=== PATIENT | female | born 1995 | race African-American/Black ===

== ENCOUNTER 2018-04-11 20:50 | Emergency (ER) | payer SELFPAY ==
[2018-04-11 20:56] VITALS: BP 141/85
[2018-04-11] MEDS ORDERED: MEDROL4 M2 PO (21:43)
[2018-04-11] MEDS ORDERED: NAPROSYN500 M1 PO (21:43)
[2018-04-11] MEDS ORDERED: CYCLOBENZAPRINE10 M1 PO (21:43)
--- NOTE | 2018-04-11 21:44 | ED UPPER/LOWER EXTREMITY COMPL ---
History of Present Illness General Chief Complaint: General Adult Stated Complaint: NECK TO L SIDE OF ARM PAIN Source: patient Exam Limitations: no limitations Vital Signs & Intake/Output Vital Signs & Intake/Output Vital Signs Date Time Temp Pulse Resp B/P B/P Pulse O2 O2 Flow FiO2 Mean Ox Delivery Rate 04/11 2148 Room Air 04/11 2056 98.2 83 16 141/85 96 Room Air Allergies Coded Allergies: No Known Allergies (04/11/18) Reconcile Medications Cyclobenzaprine HCl 10 MG TABLET 1 TAB PO TID SPASMS Methylprednisolone. (Medrol) 4 MG TAB.DS.PK 1 DP PO AD PAIN 6 on day 1 then reduce by one tablet daily until gone Naproxen (Naprosyn) 500 MG TABLET 1 TAB PO BID PAIN Triage Note: PT TO ED WITH C/O INTERMITTENT THROBBING PAIN ON LEFT SIDE OF NECK RADIATING DOWN LEFT ARM SINCE YESTERDAY. DENIES INJURY OR STRAIN. DENIES CP, SOB. Triage Nurses Notes Reviewed? yes Onset: Abrupt Duration: day(s):, constant Timing: recent history Severity: moderate, severe Pain/Injury Location: Left: Shoulder. No Modifying Factors: none : No Patient currently breastfeeds: No HPI: 22-year-old female comes into the emergency room for further evaluation of neck pain. Symptoms been going on for days. Pain is worse with certain movements at times. She gets a burning sensation in her left shoulder that radiates down her left arm to her hand. No chest pain or shortness of breath. Nothing seems to make the symptoms better or worse. She comes in for further evaluation. Denies any known trauma.. (Julian Reina) Past History Travel History Traveled to [place] past 21 day No Medical History Any Pertinent Medical History? none Surgical History Surgical History: non-contributory Psychosocial History What is your primary language Iranian Tobacco Use: Never used Family History Hx Contributory? No (Julian Reina) Review of Systems Review of Systems Constitutional: Reports: no symptoms. EENTM: Reports: no symptoms. Respiratory: Reports: no symptoms. Cardiovascular: Reports: no symptoms. Gastrointestinal/Abdominal: Reports: no symptoms. Genitourinary: Reports: no symptoms. Musculoskeletal: Reports: see HPI. Skin: Reports: no symptoms. Neurological/Psychological: Reports: no symptoms. Hematologic/Endocrine: Reports: no symptoms. Immunological: Reports: no symptoms. All Other Systems: Reviewed and Negative (Julian Reina) Physical Exam Physical Exam General Appearance: well developed/nourished, mild distress Head: atraumatic Eyes: Bilateral: normal appearance. Ears, Nose, Throat: normal ENT inspection, hearing grossly normal Neck: normal inspection Cardiovascular/Respiratory: no respiratory distress Back: normal inspection Shoulder Left: tenderness over left AC joint and posterior shoulder, full range of motion, negative empty can test, negative [place] tests and apprehension test , Neurologic/Tendon: normal sensation, normal motor functions, normal tendon functions, responds to pain, no evidence tendon injury, no pulse deficit Skin: intact, normal color, warm/dry (Julian Reina) Progress Differential Diagnosis: sprain, tendon injury, rotator cuff injury, impingement syndrome, Plan of Care: 04/11/2018 10:54:17 PM Symptoms are likely most consistent with impingement syndrome. She was referred to orthopedic doctor. Return if any other concerns worsening symptoms. Take medications as prescribed. Patient may need physical therapy for follow-up. (Julian Reina) Departure Departure Disposition: HOME OR SELF CARE Condition: Stable Clinical Impression Primary Impression: Impingement syndrome of left shoulder Referrals: Patient Has No Primary Care Dr (PCP/Family) Hiram Atwood MD Additional Instructions: Take naproxen, Flexeril, Medrol Dosepak as prescribed. Follow-up with orthopedic doctor. Return if any concerns worsening symptoms. Please go over all results of today's visit with your primary care doctor. Contact your primary care doctor to let them know you were here in the emergency room. There may be nonspecific findings which may not be related to your visit today here in the emergency room but may require further evaluation and chronic monitoring by your primary care doctor. If you had a laceration today the chance of foreign body always remains. You should follow-up with your primary care doctor for recheck in 3-5 days for a wound check. If you had an x-ray done there is a chance that a fracture could have been missed on initial read and you should follow-up with your primary care doctor for repeat x-rays if symptoms persist. If your blood pressure was elevated here in the emergency room please have rechecked by [facility] primary care doctor within the next 48. If you were prescribed a narcotic here in the emergency room or any type of controlled substances you're not allowed to drive while taking this medication or operate any type of heavy machinery. Narcotics can make you feel lightheaded dizziness nausea and can cause constipation. You may need to machine operator picker a stool softener. Thank you for choosing [facility] emergency room. Please return to the emergency room immediately if you have any other concerns worsening of symptoms. Departure Forms: Customer Survey General Discharge Information Prescriptions: Current Visit Scripts Naproxen (Naprosyn) 1 TAB PO BID #30 TAB Cyclobenzaprine HCl 1 TAB PO TID #30 TAB Methylprednisolone. (Medrol) 1 DP PO AD #1 DP 6 on day 1 then reduce by one tablet daily until gone (Julian Reina) PA/HIGH RISK CASE MANAGER Co-Sign Statement Statement: ED Attending supervision documentation- [] I saw and evaluated the patient. I have also reviewed all the pertinent lab results and diagnostic results. I agree with the findings and the plan of care as documented in the PA's/HIGH RISK CASE MANAGER's documentation. [x] I have reviewed the ED Record and agree with the PA's/HIGH RISK CASE MANAGER's documentation. [] Additions or exceptions (if any) to the PAs/HIGH RISK CASE MANAGER's note and plan are summarized below: [] (Lisa QUINTERO,Hood Bland)
== END 2018-04-11 21:50 ==
LOC: ERH 20:50
DX: M75.42 Impingement syndrome of left shoulder (principal); M54.2 Cervicalgia